=== PATIENT | female | born 1985 | race Caucasian/White ===

== ENCOUNTER 2018-10-21 15:03 | Emergency (ER) | payer OTHER ==
[2018-10-21 15:28] VITALS: BP 108/54; BMI 24.3
[2018-10-21] MEDS ORDERED: SODIUM CHLORIDE 1,000 ML IV STA (15:29)
[2018-10-21] MEDS ORDERED: ACETAMINOPHEN 325 MG TABLET (FP) PO ONE (15:29)
--- NOTE | 2018-10-21 15:29 | PDOC ---
Rapid Medical Evaluation Chief Complaint: Cold Symptoms Medical Evaluation: Allergies Allergy/AdvReac Type Severity Reaction Status Date / Time No Known Allergies Allergy Verified 06/25/14 17:06 I have performed a brief in-person evaluation of this patient. The patient presents with a chief complaint of: C/o fever, body aches, cough since 3 days ago; took Motrin at 11:30 Pertinent physical exam findings: Lungs clear, oropharynx clear I have ordered the following: Tylenol, Flu, IVF The patient will proceed to the ED for further evaluation. 10/21/18 15:27 Discharge Disposition - Discharge Dispostion Condition at time of disposition: Stable - Referrals - Patient Instructions - Post Discharge Activity
[2018-10-21 17:11] VITALS: PULSE 100; TEMP 100.1
--- NOTE | 2018-10-21 17:15 | PDOC ---
History of Present Illness - General Chief Complaint: Cold Symptoms Stated Complaint: COLD SYMPTOMS / CP Time Seen by Provider: 10/21/18 16:57 - History of Present Illness Initial Comments: 10/21/18 17:13 33-year-old female without comorbidities presents for evaluation of fever and body aches and flulike symptoms 2 days Past History - Past Medical History Allergies/Adverse Reactions: Allergies Allergy/AdvReac Type Severity Reaction Status Date / Time No Known Allergies Allergy Verified 10/21/18 16:09 Home Medications: Ambulatory Orders Oseltamivir Phosphate [Tamiflu] 75 mg PO BID #10 capsule 10/21/18 COPD: No GI Disorders: Yes (rectal bleed) - Surgical History Cholecystectomy: No Lung Surgery: No - Reproductive History (#): 1 Para: 0 Therapeutic (s) & number: No Spontaneous : 0 - Immunization History Immunization Up to Date: No - Suicide/Smoking/Psychosocial Hx Smoking History: Never smoked Have you smoked in the past 12 months: No Information on smoking cessation initiated: No Hx Alcohol Use: No Drug/Substance Use Hx: No Review of Systems - Review of Systems Constitutional: Yes: Chills, Diaphoresis, Fever, Malaise, Night Sweats HEENTM: Yes: Nose Congestion Respiratory: Yes: Cough *Physical Exam - Vital Signs Last Vital Signs Temp Pulse Resp BP Pulse Ox 100.1 F H 100 H 20 108/54 L 99 10/21/18 17:11 10/21/18 17:11 10/21/18 15:24 10/21/18 15:24 10/21/18 15:24 - Physical Exam Comments: 10/21/18 17:14 HEAD: NC/AT EYES: Conjuntiva clear Ears: Canals and TM's normal NOSE: No d/c THROAT: Moist mucous membrances, oral pharanx clear, uvula midline NECK: Supple without adenopathy CARDIAC: S1 S2 LUNGS: CTA Full and Equal breath sounds ABDOMEN: Soft NT ND MS: Full ROM in all joints without edema NEUROLOGIC: No gross sensory or motor deficits, NVID SKIN: Normal color and temperature no lesions or rashes Moderate Sedation - Procedure Monitoring Vital Signs: Procedure Monitoring Vital Signs Temperature 100.1 F H 10/21/18 17:11 Pulse Rate 100 H 10/21/18 17:11 Respiratory Rate 20 10/21/18 15:24 Blood Pressure 108/54 L 10/21/18 15:24 O2 Sat by Pulse Oximetry (%) 99 10/21/18 15:24 ED Treatment Course - Medications Given in the ED: ED Medications Discontinued Medications Generic Name Dose Route Start Last Admin Trade Name Marina PRN Reason Stop Dose Admin Acetaminophen 975 mg 10/21/18 15:29 10/21/18 15:38 Tylenol - PO 10/21/18 15:30 975 mg ONCE ONE Administration Sodium Chloride 1,000 mls @ 1,000 mls/hr 10/21/18 15:29 10/21/18 17:13 Normal Saline - IV 10/21/18 16:28 Not Given ASDIR STA *DC/Admit/Observation/Transfer Diagnosis at time of Disposition: Influenza A - Discharge Dispostion Disposition: HOME Condition at time of disposition: Stable Decision to Admit order: No - Prescriptions Prescriptions: Oseltamivir Phosphate [Tamiflu] 75 mg PO BID #10 capsule - Referrals Referrals: Kehinde Block [Non Staff, Medical] - - Patient Instructions Printed Discharge Instructions: Influenza, DI for H1N1 Influenza -- Adult Additional Instructions: Please take the Tamiflu as directed. Return to the emergency room should symptoms worsen or go unresolved and follow-up with your primary care physician in one to 2 days for further evaluation and treatment options. Tylenol and Motrin as directed for body aches and fever. - Post Discharge Activity
== END 2018-10-21 17:17 | disposition home or self-care (01) ==
LOC: JERFT 15:03 → JER 15:03 → JERFT 17:17
DX: J09.X2 Influenza due to identified novel influenza A virus with other respiratory manifestations (principal)
CPT/HCPCS: 87804; 99281-25

== ENCOUNTER 2018-10-23 01:35 | Emergency (ER) | payer OTHER ==
[2018-10-23 01:44] VITALS: TEMP 100; BMI 24.3
[2018-10-23] MEDS ORDERED: SODIUM CHLORIDE 0.9% 1000 ML INFUS.BAG IV ONE (01:51)
[2018-10-23] MEDS ORDERED: ACETAMINOPHEN 1000 MG/100 ML VIAL (NON FORMULARY) IVPB ONE (01:51)
--- NOTE | 2018-10-23 01:51 | PDOC ---
Attending Attestation - HPI HPI: 10/23/18 02:03 The patient is a 33 year old female, with a significant past medical history of recent flu diagnosis, who presents to the emergency department with, fever, chills, and shortness of breath. Patient was recently diagnosed with the flu on 10/21. She denies recent nausea, vomit, diarrhea or constipation. She denies recent dysuria, frequency, urgency or hematuria. She denies recent chest pain. Allergies: NK Primary Care Physician: Dr. Courtney - Physicial Exam PE: 10/23/18 02:03 Agree with resident exam. <Ruby Berg - Last Filed: 10/23/18 02:02> - Resident Resident Name: Adonis Mcclendon - ED Attending Attestation I have performed the following: I have examined & evaluated the patient, The case was reviewed & discussed with the resident, I agree w/resident's findings & plan - Medical Decision Making 10/23/18 02:29 33-year-old nontoxic-appearing female with recent influenza positive with body aches and cough Patient given IV fluid normal saline, Toradol and a DuoNeb 1 She will be discharged home with instructions for supportive care <Kori Westbrook - Last Filed: 10/23/18 02:30> Attestations - Attestations 10/23/18 02:03 Documentation prepared by Ruby Berg, acting as medical translator for Kori Westbrook DO. <Ruby Berg - Last Filed: 10/23/18 02:02>
[2018-10-23] MEDS ORDERED: ALBUTEROL SO4 2.5/IPRATROPIUM 0.5 INH SOL 3 ML VIAL.NEB. NEB ONE (01:55)
[2018-10-23] MEDS ORDERED: ACETAMINOPHEN INJECTION 100 ML IVPB ONE (02:04)
[2018-10-23] MEDS ORDERED: IPRATROPIUM BR 0.02% 0.5 MG/2.5 ML VIAL.NEB. NEB ONE (02:04)
[2018-10-23] MEDS ORDERED: ALBUTEROL SO4 0.083% IH SOL 2.5 MG/3 ML VIAL.NEB. NEB ONE (02:04)
--- NOTE | 2018-10-23 02:56 | PDOC ---
History of Present Illness - General Chief Complaint: Weakness Stated Complaint: WEAKNESS, FEVER Time Seen by Provider: 10/23/18 01:45 History Source: Patient Exam Limitations: No Limitations - History of Present Illness Initial Comments: 10/23/18 02:53 The patient is a 33F with no PMH who presents to the ER with weakness. The patient states that she was diagnosed with the flu 2 days ago and was coughing so badly that she became weak and had diffuse back pain. She denies any other symptoms. Past History - Past Medical History Allergies/Adverse Reactions: Allergies Allergy/AdvReac Type Severity Reaction Status Date / Time No Known Allergies Allergy Verified 10/21/18 16:09 Home Medications: Ambulatory Orders Oseltamivir Phosphate [Tamiflu] 75 mg PO BID #10 capsule 10/21/18 COPD: No GI Disorders: Yes (rectal bleed) - Surgical History Cholecystectomy: No Lung Surgery: No - Reproductive History (#): 1 Para: 0 Therapeutic (s) & number: No Spontaneous : 0 - Immunization History Immunization Up to Date: No - Suicide/Smoking/Psychosocial Hx Smoking History: Unknown if ever smoked Have you smoked in the past 12 months: No Hx Alcohol Use: No Drug/Substance Use Hx: No Review of Systems - Review of Systems Able to Perform ROS?: Yes Is the patient limited Hungarian proficient: No Constitutional: Yes: Chills, Fever, Other (+Flu) HEENTM: No: Eye Pain, Throat Swelling Respiratory: Yes: Cough. No: Shortness of Breath Cardiac (ROS): No: Chest Pain ABD/GI: No: Nausea, Vomiting Musculoskeletal: Yes: Back Pain *Physical Exam - Vital Signs Last Vital Signs Temp Pulse Resp BP Pulse Ox 100 F H 84 20 130/68 100 10/23/18 01:37 10/23/18 01:37 10/23/18 01:37 10/23/18 01:37 10/23/18 01:37 - Physical Exam General Appearance: Yes: Nourished, Appropriately Dressed, Mild Distress HEENT: positive: Normal Voice, Hearing Grossly Normal Respiratory/Chest: positive: Lungs Clear, Normal Breath Sounds. negative: Chest Tender Cardiovascular: positive: Regular Rhythm, Regular Rate, S1, S2. negative: Systolic Murmur Gastrointestinal/Abdominal: positive: Flat, Soft. negative: Tender Musculoskeletal: positive: Other (Mild TTP diffusely over back) Moderate Sedation - Procedure Monitoring Vital Signs: Procedure Monitoring Vital Signs Temperature 100 F H 10/23/18 01:37 Pulse Rate 84 10/23/18 01:37 Respiratory Rate 20 10/23/18 01:37 Blood Pressure 130/68 10/23/18 01:37 O2 Sat by Pulse Oximetry (%) 100 10/23/18 01:37 ED Treatment Course - Medications Given in the ED: ED Medications Discontinued Medications Generic Name Dose Route Start Last Admin Trade Name Marina PRN Reason Stop Dose Admin Acetaminophen 1,000 mg 10/23/18 01:51 10/23/18 02:35 Ofirmev Injection - IVPB 10/23/18 01:52 1,000 mg ONCE ONE Administration Sodium Chloride 1,000 ml 10/23/18 01:51 10/23/18 02:35 Normal Saline - IV 10/23/18 01:52 1,000 ml ONCE ONE Administration Medical Decision Making - Medical Decision Making 10/23/18 02:55 The patient is a 33F with no PMH, recently diagnosed with flu, who presents to the ER with complaints of weakness after coughing w/ back pain. Giving IVF and IV tylenol. Pt states she feels "much better" on reexamination. Will d/c with PCP f/u. *DC/Admit/Observation/Transfer Diagnosis at time of Disposition: Influenza A, Weakness - Discharge Dispostion Disposition: HOME Condition at time of disposition: Stable Decision to Admit order: No - Referrals Referrals: Jordan Courtney MD [Primary Care Provider] - - Patient Instructions Printed Discharge Instructions: How to Avoid a Cold or Flu Additional Instructions: Please follow up with your primary care physician in 2-3 days. Please return to the ER if you have any signs or symptoms of chest pain, shortness of breath, uncontrollable fever, chills, nausea, vomiting, numbness, tingling, or weakness in any part of your body, changes in vision, or slurred speech. Please take your medications as prescribed. Please return to the ER if symptoms persist, worsen, or new symptoms arise. - Post Discharge Activity
[2018-10-23 03:13] VITALS: BP 113/61; PULSE 74
== END 2018-10-23 03:44 | disposition home or self-care (01) ==
LOC: JER 01:35
PROC: 3E033NZ Introduction of Analgesics, Hypnotics, Sedatives into Peripheral Vein, Percutaneous Approach (ICD-10-PCS; principal; 2018-10-23)
PROC: 3E0F7GC Introduction of Other Therapeutic Substance into Respiratory Tract, Via Natural or Artificial Opening (ICD-10-PCS; 2018-10-23)
PROC: 3E0337Z Introduction of Electrolytic and Water Balance Substance into Peripheral Vein, Percutaneous Approach (ICD-10-PCS; 2018-10-23)
DX: J09.X2 Influenza due to identified novel influenza A virus with other respiratory manifestations (principal); R53.1 Weakness
CPT/HCPCS: 94640; 96361; 96374; 99281-25; J0131; J7030

== ENCOUNTER 2019-01-01 13:01 | Emergency (ER) | payer OTHER ==
[2019-01-01 13:13] VITALS: BP 122/76; PULSE 87; TEMP 98.1; BMI 23.8
[2019-01-01] MEDS ORDERED: KETOROLAC TROMETHAMINE 60 MG/2 ML VIAL IM ONE (13:32)
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
[2019-01-01] MEDS ORDERED: KETOROLAC TROMETHAMINE 60 MG/2 ML VIAL ONE (13:38)
== END 2019-01-01 13:51 | disposition home or self-care (01) ==
LOC: FER 13:01
PROC: 3E0233Z Introduction of Anti-inflammatory into Muscle, Percutaneous Approach (ICD-10-PCS; principal; 2019-01-01)
DX: S13.4XXA Sprain of ligaments of cervical spine, initial encounter (principal); V43.52XA Car driver injured in collision with other type car in traffic accident, initial encounter; Y93.89 Activity, other specified; Y92.410 Unspecified street and highway as the place of occurrence of the external cause; K62.5 Hemorrhage of anus and rectum
CPT/HCPCS: 99282-25

== ENCOUNTER 2023-01-23 19:51 | Emergency (ER) | payer OTHER ==
[2023-01-23 19:59] VITALS: BP 122/77; PULSE 112; RESP 20; TEMP 98.8; BMI 28.1
[2023-01-23] MEDS ORDERED: KETOROLAC TROMETHAMINE 30 MG/1 ML VIAL IVPUSH ONE (22:17)
[2023-01-23] MEDS ORDERED: SODIUM CHLORIDE 0.9% 500 ML INFUS.BAG IV ONE (22:17)
[2023-01-23] MEDS ORDERED: ACETAMINOPHEN 1000 MG/100 ML BAG IVPB ONE (22:17)
[2023-01-23] MEDS ORDERED: ACETAMINOPHEN INJECTION 100 ML IVPB ONE (22:41)
[2023-01-23] MEDS ORDERED: KETOROLAC TROMETHAMINE 30 MG/1 ML VIAL ONE (22:41)
[2023-01-23 22:46] LABS: BASO % 0.4 % (0-2.0); EOS % 0.1 % (0-4.5); HEMATOCRIT 40.9 % (32.4-45.2); LYMPH % 8.1 % (8-40); MCH 29.8 pg (25.7-33.7); MCHC 34.3 g/dl (32.0-36.0); MEAN CELL VOLUME 86.8 fl (80-96); MEAN PLT VOLUME 9.1 fl (7.5-11.1); MONO % 9.4 % (3.8-10.2); PLATELET COUNT 242 10^3/uL (134-434); RBC 4.71 M/mm3 (3.60-5.2); RDW 14.1 % (11.6-15.6)
[2023-01-23 23:05] LABS: POTASSIUM 4.1 mmol/L (3.5-5.1)
[2023-01-23 23:06] LABS: CALCIUM 9.3 mg/dL (8.5-10.1)
[2023-01-23 23:22] LABS: BLOOD UREA NITROGEN 8.3 mg/dL (7-18)
== END 2023-01-24 00:08 | disposition home or self-care (01) ==
LOC: JERFT 19:51
PROC: 3E033NZ Introduction of Analgesics, Hypnotics, Sedatives into Peripheral Vein, Percutaneous Approach (ICD-10-PCS; principal; 2023-01-23)
PROC: 3E0333Z Introduction of Anti-inflammatory into Peripheral Vein, Percutaneous Approach (ICD-10-PCS; 2023-01-23)
DX: J10.1 Influenza due to other identified influenza virus with other respiratory manifestations (principal); R68.83 Chills (without fever); R51.9 Headache, unspecified; Z20.822 Contact with and (suspected) exposure to COVID-19
CPT/HCPCS: 0241U-QW; 36415; 80048; 85025; 99284-25

== ENCOUNTER 2023-10-07 20:16 | Emergency (ER) | payer OTHER ==
[2023-10-07 20:20] VITALS: BP 128/75; PULSE 70; RESP 16; TEMP 97.6; BMI 28.3
[2023-10-07] MEDS ORDERED: ACETAMINOPHEN 500 MG TABLET (FP) PO ONE (20:28)
[2023-10-07] MEDS ORDERED: ACETAMINOPHEN 500 MG TABLET (FP) ONE (20:47)
== END 2023-10-07 21:10 | disposition home or self-care (01) ==
LOC: JERFT 20:16
DX: S93.401A Sprain of unspecified ligament of right ankle, initial encounter (principal); M25.571 Pain in right ankle and joints of right foot; M25.471 Effusion, right ankle; W10.8XXA Fall (on) (from) other stairs and steps, initial encounter; Y93.01 Activity, walking, marching and hiking; Y92.009 Unspecified place in unspecified non-institutional (private) residence as the place of occurrence of the external cause
CPT/HCPCS: 73610-TC-RT-FY; 99283-25